=== PATIENT | male | born 1960 | race Caucasian/White ===

== ENCOUNTER 2022-06-17 12:42 | Outpatient (CLI) | payer BC | END 2022-06-17 12:43 | disposition home or self-care (01) | LOC: LABBT 12:42 | PROVIDERS: ATTEND Surgery | DX: Z01.818 Encounter for other preprocedural examination (principal); M54.16 Radiculopathy, lumbar region; M43.06 Spondylolysis, lumbar region; Z20.822 Contact with and (suspected) exposure to COVID-19 | CPT/HCPCS: 87811; 93005; 93010 ==

== ENCOUNTER 2022-06-22 08:01 | Inpatient (IN) | payer BC ==
[2022-06-17 09:29] VITALS: BMI 27.8
[2022-06-17 13:39] LABS: Hemoglobin 14.6 g/dL (13.5-17.5); Mean Corpuscular HGB CONC 33.3 g/dL (32.0-36.0); Mean Corpuscular Hemoglobin 30.3 pg (27.0-33.0); Mean Corpuscular Volume 90.9 fl (81.2-95.1); Mean Platelet Volume 10.1 fl (7.4-10.4); Platelet Count 318 10x3/uL (150-450); RBC Distribution Width 12.4 % (11.5-14.5); Red Blood Cell (RBC) Count 4.82 10x6/uL (4.32-5.72); White Blood Cell (WBC) Count 8.5 10x3/uL (3.5-10.5)
[2022-06-17 13:55] LABS: INR-International Normal Ratio 0.9; PTT 30.8 sec (22.0-33.0); Prothrombin Time 9.8 sec (9.5-12.1)
[2022-06-17 14:03] LABS: Anion Gap 14 mmol/L (10-20); BUN (Urea Nitrogen) 15 mg/dL (8.4-25.7); Calc. Creatinine Clearance 0 mL/min (70-130); Calcium 9.7 mg/dL (7.8-10.44); Carbon Dioxide 27 mmol/L (22-29); Chloride 108 mmol/L (98-107); Estimated GFR 92; Glucose 95 mg/dL (70-105); Potassium 4.9 mmol/L (3.5-5.1); Sodium 144 mmol/L (136-145)
[2022-06-22] MEDS ORDERED: Clindamycin/D5W 900 mg/50 ml Premix Bag ONE (09:04)
[2022-06-22] MEDS ORDERED: Levofloxacin 500 mg/D5W 100 ml Premix Bag ONE (09:04)
[2022-06-22] MEDS ORDERED: Thrombin 5000 UNITS/5 ML VIAL ONE (09:46)
[2022-06-22] MEDS ORDERED: Midazolam HCl 2 mg/2 ml Vial ONE ×2 (10:00→10:27)
[2022-06-22] MEDS ORDERED: fentaNYL Citrate/PF 100 MCG/2 ML SYRINGE ONE ×3 (11:16→16:41)
[2022-06-22] MEDS ORDERED: NEOSTIGMINE 3 MG/3 ML SYR 3 MG/3 ML SYRINGE ONE (11:23)
[2022-06-22] MEDS ORDERED: Vecuronium 10 MG VIAL ONE (11:23)
[2022-06-22] MEDS ORDERED: Ondansetron PF 4 MG/2 ML Vial ONE ×2 (11:23→16:25)
[2022-06-22] MEDS ORDERED: Dexamethasone 20 MG/5 ML VIAL ONE (11:23)
[2022-06-22] MEDS ORDERED: Ketorolac Tromethamine 30 MG/ML VIAL ONE (11:23)
[2022-06-22] MEDS ORDERED: Lidocaine 1% MPF 2 ML VIAL ONE (11:23)
[2022-06-22] MEDS ORDERED: PROPOFOL 200 MG/20 ML VIAL ONE (11:23)
[2022-06-22] MEDS ORDERED: Glycopyrrolate 0.2 MG/ML 5 ML SYRINGE ONE (11:23)
[2022-06-22] MEDS ORDERED: Phenylephrine 10 MG/ML VIAL ONE (11:23)
[2022-06-22] MEDS ORDERED: Rocuronium Bromide 10 MG/ML (10ML VIAL) ONE (11:23)
[2022-06-22] MEDS ORDERED: HYDROcodone/Acetaminophen 7.5/325 mg Tablet PO PRN (12:03)
[2022-06-22] MEDS ORDERED: traMADol HCl 50 MG TAB PO PRN (12:03)
[2022-06-22] MEDS ORDERED: Promethazine 25 MG TAB PO PRN (12:03)
[2022-06-22] MEDS ORDERED: diphenhydrAMINE 25 MG CAP PO PRN (12:03)
[2022-06-22] MEDS ORDERED: hydrALAZINE 20 MG/ML VIAL SLOW IVP PRN (12:06)
[2022-06-22] MEDS ORDERED: Polyethylene Glycol 3350 17 GM Packet PO PRN (12:06)
[2022-06-22] MEDS ORDERED: PACU-Morphine 4MG/ML VIAL SLOW IVP PRN (14:50)
[2022-06-22] MEDS ORDERED: Morphine Sulfate 2 MG/ML SYRINGE SLOW IVP PRN (14:50)
[2022-06-22] MEDS ORDERED: Ondansetron HCl/PF 4 MG/2 ML Vial IVP PRN (14:50)
[2022-06-22] MEDS ORDERED: HYDROmorphone 2 MG/ML VIAL SLOW IVP PRN (14:50)
[2022-06-22] MEDS ORDERED: Promethazine HCl 25 MG/ML VIAL IVPB PRN (14:50)
[2022-06-22] MEDS ORDERED: Promethazine HCl 25 MG/ML VIAL IM PRN (14:50)
[2022-06-22] MEDS ORDERED: PROPOFOL 20 ML ONE (15:28)
[2022-06-22] MEDS ORDERED: HYDROmorphone 0.5 MG/0.5 ML SYRINGE ONE ×4 (15:41→16:15)
[2022-06-22] MEDS ORDERED: Morphine 4 MG/ML VIAL ONE (16:24)
[2022-06-22] MEDS ORDERED: Promethazine HCl 25 MG/ML VIAL ONE (16:30)
[2022-06-22] MEDS ORDERED: Clindamycin/D5W 900 MG in Premix Bag 1 BAG IVPB SCH (17:00)
[2022-06-22] MEDS ORDERED: Fentanyl 100 MCG/2 ML VIAL ONE (17:00)
[2022-06-22] MEDS: Sodium Chloride 0.9% 1,000 ML IV SCH ×2 (20:09→20:16)
[2022-06-22] MEDS: HYDROcodone/Acetaminophen 7.5/325 mg Tablet PO PRN (20:15)
[2022-06-22] MEDS: Docusate 100 MG CAP PO SCH (20:16)
[2022-06-22] MEDS: Ketorolac Tromethamine 30 MG/ML VIAL IVP PRN (22:25)
[2022-06-23] MEDS: Morphine 2 MG/ML VIAL SLOW IVP PRN ×8 (00:32→20:37)
[2022-06-23] MEDS: Clindamycin/D5W 900 MG in Premix Bag 1 BAG IVPB SCH ×3 (03:59→20:36)
[2022-06-23 05:49] LABS: #Monocytes 1.8 thou/uL (0.11-0.59); #Neutrophils 12.5 thou/uL (1.40-6.50); %Eosinophils 0.1 % (0.0-10.0); %Lymphocytes 6.6 % (21.0-51.0); %Monocytes 11.9 % (0.0-10.0); %Neutrophils 81.5 % (42.0-75.0); Hemoglobin 12.7 g/dL (14.0-18.0); Mean Corpuscular HGB CONC 33.5 g/dL (32.0-36.0); Mean Corpuscular Hemoglobin 31.2 pg (27.0-31.0); Mean Corpuscular Volume 93.1 fL (78.0-98.0); Mean Platelet Volume 7.6 fL (7.4-10.4); Platelet Count 282 thou/uL (130-400); RBC Distribution Width 11.7 % (11.5-14.5); Red Blood Cell (RBC) Count 4.09 mill/uL (4.70-6.10); White Blood Cell (WBC) Count 15.3 thou/uL (4.8-10.8)
[2022-06-23 06:06] LABS: Anion Gap 14 mmol/L (10-20); BUN (Urea Nitrogen) 15 mg/dL (8.4-25.7); Calc. Creatinine Clearance 112 mL/min (70-130); Calcium 8.6 mg/dL (7.8-10.44); Carbon Dioxide 23 mmol/L (22-29); Chloride 107 mmol/L (98-107); Estimated GFR 95; Glucose 155 mg/dL (70-105); Potassium 4.1 mmol/L (3.5-5.1); Sodium 140 mmol/L (136-145)
[2022-06-23] MEDS: Docusate 100 MG CAP PO SCH ×2 (09:03→20:36)
[2022-06-23] MEDS: Diazepam 5 MG TAB PO PRN ×2 (09:03→18:17)
[2022-06-23] MEDS: Ketorolac Tromethamine 30 MG/ML VIAL IVP PRN ×3 (09:04→23:09)
[2022-06-23] MEDS: HYDROcodone/Acetaminophen 7.5/325 mg Tablet PO PRN (10:14)
[2022-06-23] MEDS ORDERED: oxyCODONE 5 MG TAB PO PRN (12:12)
[2022-06-23] MEDS: oxyCODONE 5 MG TAB PO PRN ×2 (15:00→20:36)
[2022-06-23] MEDS: Sodium Chloride 0.9% 1,000 ML IV SCH (16:57)
[2022-06-23] MEDS: Acetaminophen 325 MG TAB PO PRN (23:16)
[2022-06-24] MEDS: Clindamycin/D5W 900 MG in Premix Bag 1 BAG IVPB SCH ×2 (03:27→11:30)
[2022-06-24] MEDS: Sodium Chloride 0.9% 1,000 ML IV SCH ×2 (03:27→18:44)
[2022-06-24] MEDS: oxyCODONE 5 MG TAB PO PRN ×3 (03:28→20:35)
[2022-06-24] MEDS: Morphine 2 MG/ML VIAL SLOW IVP PRN (03:28)
[2022-06-24] MEDS: Diazepam 5 MG TAB PO PRN ×3 (07:06→23:54)
[2022-06-24] MEDS ORDERED: Promethazine HCl 12.5 MG in Sodium Chloride 0.9% 50 ML IVPB PRN (07:29)
[2022-06-24] MEDS ORDERED: Dexamethasone 10 MG/ML VIAL SLOW IVP SCH (07:45)
[2022-06-24] MEDS: Docusate 100 MG CAP PO SCH ×2 (08:48→20:35)
[2022-06-24] MEDS: Fentanyl 100 MCG/2 ML VIAL SLOW IVP PRN ×4 (08:49→19:18)
[2022-06-24] MEDS: HYDROcodone/Acetaminophen 5/325 mg Tablet PO PRN ×3 (11:30→22:02)
[2022-06-24] MEDS: Dexamethasone 4 MG TAB PO SCH ×3 (11:30→23:54)
[2022-06-24] MEDS: Acetaminophen 325 MG TAB PO PRN (16:29)
[2022-06-25] MEDS: oxyCODONE 5 MG TAB PO PRN ×5 (01:34→20:55)
[2022-06-25] MEDS: HYDROcodone/Acetaminophen 5/325 mg Tablet PO PRN ×3 (03:21→23:20)
[2022-06-25] MEDS: Dexamethasone 4 MG TAB PO SCH ×4 (05:57→23:20)
[2022-06-25] MEDS: Sodium Chloride 0.9% 1,000 ML IV SCH ×2 (06:50→23:04)
[2022-06-25] MEDS: Docusate 100 MG CAP PO SCH ×2 (08:59→20:56)
[2022-06-25] MEDS: Tamsulosin HCl 0.4 MG CAP PO SCH (08:59)
[2022-06-25] MEDS: Diazepam 5 MG TAB PO PRN ×2 (08:59→20:56)
[2022-06-25] MEDS: Fentanyl 100 MCG/2 ML VIAL SLOW IVP PRN (12:56)
[2022-06-25] MEDS ORDERED: Diazepam 5 MG TAB PO SCH (13:45)
[2022-06-26] MEDS: oxyCODONE 5 MG TAB PO PRN ×2 (01:41→10:05)
[2022-06-26] MEDS: Diazepam 5 MG TAB PO PRN ×2 (05:55→14:10)
[2022-06-26] MEDS: Dexamethasone 4 MG TAB PO SCH (05:55)
[2022-06-26] MEDS: Acetaminophen/Codeine 30-300mg Tablet PO PRN ×2 (05:55→12:00)
[2022-06-26] MEDS: Docusate 100 MG CAP PO SCH (09:28)
[2022-06-26] MEDS: Tamsulosin HCl 0.4 MG CAP PO SCH (09:29)
[2022-06-26] MEDS: Sodium Chloride 0.9% 1,000 ML IV SCH (09:29)
[2022-06-26] MEDS ORDERED: Dexamethasone 1 MG TAB PO SCH (12:00)
[2022-06-26 12:44] VITALS: BP 149/84; TEMP 99.1
[2022-06-26] MEDS: HYDROcodone/Acetaminophen 5/325 mg Tablet PO PRN (14:10)
[2022-06-28] MEDS ORDERED: Dexamethasone 1 MG TAB PO SCH (12:00)
[2022-06-30] MEDS ORDERED: Dexamethasone 1 MG TAB PO SCH (12:00)
== END 2022-06-26 16:30 | DRG 455 ==
LOC: SDC 08:01 → SURG A 17:25 → OBSVTOIN 06-23 09:22
PROVIDERS: ADMIT Surgery; ATTEND Surgery
PROC: 0SG30AJ Fusion of Lumbosacral Joint with Interbody Fusion Device, Posterior Approach, Anterior Column, Open Approach (ICD-10-PCS; principal; 2022-06-22)
PROC: 0SG3071 Fusion of Lumbosacral Joint with Autologous Tissue Substitute, Posterior Approach, Posterior Column, Open Approach (ICD-10-PCS; 2022-06-22)
PROC: 0SB40ZZ Excision of Lumbosacral Disc, Open Approach (ICD-10-PCS; 2022-06-22)
PROC: 3E0U0GB Introduction of Recombinant Bone Morphogenetic Protein into Joints, Open Approach (ICD-10-PCS; 2022-06-22)
DX: M43.17 Spondylolisthesis, lumbosacral region (principal); M54.16 Radiculopathy, lumbar region; M99.83 Other biomechanical lesions of lumbar region; Z20.822 Contact with and (suspected) exposure to COVID-19
CPT/HCPCS: 36415; 76000; 80048; 85025; 85027; 85610; 85730; 86850; 86900; 86901; 93970; 96374; 96375; 96376; C1713; C1768; C1776; G0378; J1100; J1170; J1885; J1956; J2250; J2270; J2370; J2405; J2550; J2704; J3010; J3370; J3490; J7050; J8540; Q0169

== ENCOUNTER 2022-11-25 10:07 | Outpatient (CLI) | payer BC | END 2022-11-25 10:08 | disposition home or self-care (01) | LOC: TBSIIMAG 10:07 | PROVIDERS: ATTEND Surgery | DX: M47.26 Other spondylosis with radiculopathy, lumbar region (principal); M48.061 Spinal stenosis, lumbar region without neurogenic claudication | CPT/HCPCS: 72100; 72148 ==